=== PATIENT | female | born 1985 | race Caucasian/White ===

== ENCOUNTER 2023-07-29 11:39 | Emergency (ER) | payer BC ==
[~2023-07-29] VITALS: Ht 160 cm; Wt 67.1 kg
[2023-07-29 11:58] VITALS: BP_SYST 128; PULSE 63; RESP 16; TEMP 97.9; O2SAT 99
[2023-07-29] MEDS: ONDANSETRON HCL 4 MG/2 ML VIAL IVP ONE (12:35)
[2023-07-29] MEDS: NACL 0.9% 1,000 ML IV ONE ×2 (12:35→13:21)
[2023-07-29 13:08] LABS: BASOPHILS % (AUTO) 0.2 % (0.0-2.0); EOSINOPHILS % (AUTO) 0.1 % (0.0-4.0); HEMATOCRIT 37.7 % (36-48); HEMOGLOBIN 12.6 g/dL (12.0-16.0); LYMPHOCYTES # (AUTO) 1.5 K/uL (1.0-5.5); LYMPHOCYTES % (AUTO) 21.5 % (20.5-51.5); MEAN CORPUSCULAR HEMOGLOBIN 27 pg (27-31); MEAN CORPUSCULAR HGB CONC 34 % (32-36); MEAN CORPUSCULAR VOLUME 81 fL (79.0-98.0); MONOCYTES # (AUTO) 0.6 K/uL (0.0-1.0); MONOCYTES % (AUTO) 8.3 % (1.7-9.3); NEUTROPHILS # (AUTO) 4.9 K/uL (1.8-7.7); NEUTROPHILS % (AUTO) 69.9 % (40.0-70.0); PLATELET COUNT (AUTO) 319 K/uL (130-430); RED BLOOD CELL COUNT(AUTO) 4.64 MIL/uL (4.2-6.2); RED CELL DISTRIBUTION WIDTH 16.3 % (9.0-15.0); WHITE BLOOD COUNT (AUTO) 7.1 K/uL (4.8-10.8)
[2023-07-29 13:33] LABS: CALCIUM 9.7 mg/dL (8.4-11.0); CREATININE 0.7 mg/dL (0.55-1.30); POTASSIUM 3.9 mmol/L (3.5-5.1)
[2023-07-29 13:37] LABS: ALBUMIN 3.7 g/dL (3.4-4.8); BILIRUBIN,DIRECT 0.3 mg/dL (0.0-0.3); TOTAL BILIRUBIN 1.5 mg/dL (0.0-1.0); TOTAL PROTEIN, SERUM 8.3 g/dL (6.4-8.3)
[2023-07-29 15:01] VITALS: BP_SYST 128; PULSE 63; RESP 16; TEMP 97.9; O2SAT 99
== END 2023-07-29 14:30 | disposition home or self-care (01) ==
LOC: SED 11:39
DX: O21.0 Mild hyperemesis gravidarum (principal); Z3A.01 Less than 8 weeks gestation of pregnancy; Z79.899 Other long term (current) drug therapy
CPT/HCPCS: 99283; 96374; 96361; 80076; 80048; 85025; 86901; 36415; J2405; J7030

== ENCOUNTER 2023-08-10 09:46 | Inpatient (IN) | payer BC ==
[~2023-08-10] VITALS: Ht 160 cm; Wt 64.9 kg
[2023-08-10 09:50] VITALS: BP_SYST 138; PULSE 75; RESP 18; TEMP 97.7; O2SAT 97
[2023-08-10 11:01] LABS: BASOPHILS % (AUTO) 0.2 % (0.0-2.0); EOSINOPHILS % (AUTO) 0.2 % (0.0-4.0); HEMATOCRIT 35.2 % (36-48); HEMOGLOBIN 11.8 g/dL (12.0-16.0); LYMPHOCYTES # (AUTO) 1.2 K/uL (1.0-5.5); LYMPHOCYTES % (AUTO) 21.2 % (20.5-51.5); MEAN CORPUSCULAR HEMOGLOBIN 27 pg (27-31); MEAN CORPUSCULAR HGB CONC 33 % (32-36); MEAN CORPUSCULAR VOLUME 82 fL (79.0-98.0); MONOCYTES # (AUTO) 0.6 K/uL (0.0-1.0); MONOCYTES % (AUTO) 10.1 % (1.7-9.3); NEUTROPHILS % (AUTO) 68.3 % (40.0-70.0); PLATELET COUNT (AUTO) 279 K/uL (130-430); RED CELL DISTRIBUTION WIDTH 16.8 % (9.0-15.0); WHITE BLOOD COUNT (AUTO) 5.8 K/uL (4.8-10.8)
[2023-08-10] MEDS: NACL 0.9% 1,000 ML IV ONE (11:02)
[2023-08-10] MEDS: ONDANSETRON HCL 4 MG/2 ML VIAL IVP ONE (11:04)
[2023-08-10 11:05] LABS: CALCIUM 9.6 mg/dL (8.4-11.0); CREATININE 0.75 mg/dL (0.55-1.30); POTASSIUM 4.4 mmol/L (3.5-5.1)
[2023-08-10 11:32] LABS: ALBUMIN 3.1 g/dL (3.4-4.8); BILIRUBIN,DIRECT 0.2 mg/dL (0.0-0.3); TOTAL BILIRUBIN 1.2 mg/dL (0.0-1.0); TOTAL PROTEIN, SERUM 7.2 g/dL (6.4-8.3)
[2023-08-10 12:03] LABS: BILIRUBIN,URINE 1+ (NEGATIVE); BLOOD, URINE 2+ (NEGATIVE); COLOR,URINE YELLOW (YELLOW); GLUCOSE,URINE NEGATIVE (NEGATIVE); KETONES,URINE 3+ (NEGATIVE); LEUKOCYTE ESTERASE ,URINE 2+ (NEGATIVE); NITRITE, URINE NEGATIVE (NEGATIVE); PROTEIN URINE TRACE (NEGATIVE)
[2023-08-10 12:08] LABS: CLARITY/URINE SLIGHTLY HAZY (CLEAR)
[2023-08-10 12:27] LABS: BACTERIA,URINE FEW /HPF (None Seen); MUCUS,URINE 1+ /LPF (None Seen)
[2023-08-10] MEDS: cefTRIAXone 1 GM IVPB PREMIX 50 ML IV ONE (12:51)
[2023-08-10] MEDS: ONDANSETRON HCL 4 MG/2 ML VIAL IVP PRN (16:09)
[2023-08-10] MEDS: D5LR 1,000 ML IV SCH (16:09)
[2023-08-10 16:25] VITALS: BP_SYST 102; PULSE 72; RESP 18; TEMP 98.4; O2SAT 98
[2023-08-10 20:00] VITALS: BP_SYST 112; PULSE 71; RESP 18; TEMP 97.7; O2SAT 100
[2023-08-10] MEDS: METOCLOPRAMIDE HCL 10 MG/2 ML VIAL IVP PRN (21:55)
[2023-08-11 00:14] VITALS: BP_SYST 92; PULSE 74; RESP 16; TEMP 98.9; O2SAT 96
[2023-08-11 08:00] VITALS: O2SAT 97
[2023-08-11 08:14] VITALS: BP_SYST 101; PULSE 70; RESP 16; TEMP 97.3; O2SAT 97
[2023-08-11 11:54] VITALS: BP_SYST 95; PULSE 74; RESP 16; TEMP 97.5; O2SAT 97
[2023-08-11 12:01] VITALS: BP_SYST 95; PULSE 74; RESP 16; TEMP 97.5; O2SAT 96
== END 2023-08-11 14:45 | disposition home or self-care (01) | DRG 833 ==
LOC: SED 09:46 → SMU 11:28
PROVIDERS: ADMIT Obstetrics & Gynecology; ATTEND Obstetrics & Gynecology
DX: O21.0 Mild hyperemesis gravidarum (principal); Z3A.09 9 weeks gestation of pregnancy
CPT/HCPCS: 36415; 76816; 80048; 80076; 81000; 81001; 81015; 84702; 85025; 86901; 87086; 96361; 96365; 96375; 99285; J0696; J2405; J2765

== ENCOUNTER 2023-08-17 11:14 | Inpatient (IN) | payer BC ==
[~2023-08-17] VITALS: Ht 160 cm; Wt 61.7 kg
[2023-08-17 11:20] VITALS: BP_SYST 138; PULSE 85; RESP 18; TEMP 97.8; O2SAT 98
[2023-08-17 11:43] LABS: BASOPHILS % (AUTO) 0.2 % (0.0-2.0); EOSINOPHILS % (AUTO) 0.1 % (0.0-4.0); HEMATOCRIT 37.4 % (36-48); HEMOGLOBIN 12.6 g/dL (12.0-16.0); LYMPHOCYTES # (AUTO) 1.3 K/uL (1.0-5.5); LYMPHOCYTES % (AUTO) 17.6 % (20.5-51.5); MEAN CORPUSCULAR HEMOGLOBIN 28 pg (27-31); MEAN CORPUSCULAR HGB CONC 34 % (32-36); MEAN CORPUSCULAR VOLUME 83 fL (79.0-98.0); MONOCYTES # (AUTO) 0.5 K/uL (0.0-1.0); MONOCYTES % (AUTO) 6.8 % (1.7-9.3); NEUTROPHILS # (AUTO) 5.7 K/uL (1.8-7.7); NEUTROPHILS % (AUTO) 75.3 % (40.0-70.0); PLATELET COUNT (AUTO) 295 K/uL (130-430); RED BLOOD CELL COUNT(AUTO) 4.53 MIL/uL (4.2-6.2); RED CELL DISTRIBUTION WIDTH 17.3 % (9.0-15.0); WHITE BLOOD COUNT (AUTO) 7.6 K/uL (4.8-10.8)
[2023-08-17] MEDS: NACL 0.9% 1,000 ML IV ONE ×2 (11:56)
[2023-08-17] MEDS: METOCLOPRAMIDE HCL 10 MG/2 ML VIAL IVP ONE (11:57)
[2023-08-17 12:00] LABS: CALCIUM 9.4 mg/dL (8.4-11.0); CREATININE 0.74 mg/dL (0.55-1.30); POTASSIUM 3.8 mmol/L (3.5-5.1)
[2023-08-17 12:24] LABS: BILIRUBIN,URINE 1+ (NEGATIVE); BLOOD, URINE 3+ (NEGATIVE); CLARITY/URINE CLEAR (CLEAR); COLOR,URINE YELLOW (YELLOW); GLUCOSE,URINE NEGATIVE (NEGATIVE); KETONES,URINE 3+ (NEGATIVE); LEUKOCYTE ESTERASE ,URINE TRACE (NEGATIVE); NITRITE, URINE NEGATIVE (NEGATIVE); PROTEIN URINE 1+ (NEGATIVE); UROBILINOGEN,URINE 0.2 (0.2-1.0)
[2023-08-17 12:27] LABS: ALBUMIN 3.5 g/dL (3.4-4.8); BILIRUBIN,DIRECT 0.2 mg/dL (0.0-0.3); TOTAL BILIRUBIN 1.5 mg/dL (0.0-1.0)
[2023-08-17 13:11] LABS: BACTERIA,URINE FEW /HPF (None Seen); MUCUS,URINE 3+ /LPF (None Seen)
[2023-08-17] MEDS ORDERED: ONDANSETRON HCL 4 MG/2 ML VIAL IVP PRN (14:30)
[2023-08-17] MEDS ORDERED: NACL 0.9% 1,000 ML IV SCH (14:30)
[2023-08-17] MEDS: LR 1,000 ML IV ONE (15:56)
[2023-08-17 16:43] VITALS: BP_SYST 120; PULSE 65; RESP 16; TEMP 98.6
[2023-08-17 17:00] VITALS: O2SAT 98
[2023-08-17] MEDS: cefTRIAXone 1 GM IVPB PREMIX 50 ML IV ONE (17:39)
[2023-08-17] MEDS: DIPHENHYDRAMINE HCL 50 MG CAPSULE PO SCH (18:00)
[2023-08-17] MEDS: ONDANSETRON HCL 4 MG/2 ML VIAL IVP SCH (19:00)
[2023-08-17] MEDS: METOCLOPRAMIDE HCL 10 MG/2 ML VIAL IVP SCH (21:00)
[2023-08-17 21:55] VITALS: BP_SYST 106; PULSE 77; RESP 18; TEMP 98.2; O2SAT 98
[2023-08-18] VITALS: BP_SYST 97; PULSE 71; RESP 16; TEMP 97.9; O2SAT 97
[2023-08-18 04:35] VITALS: BP_SYST 102; PULSE 66; RESP 18; O2SAT 98
[2023-08-18 07:39] VITALS: BP_SYST 117; PULSE 70; RESP 16; TEMP 99.5; O2SAT 96
[2023-08-18 08:27] LABS: ALBUMIN 2.5 g/dL (3.4-4.8); CALCIUM 8.4 mg/dL (8.4-11.0); CREATININE 0.61 mg/dL (0.55-1.30); POTASSIUM 3.6 mmol/L (3.5-5.1); TOTAL BILIRUBIN 1.4 mg/dL (0.0-1.0)
[2023-08-18 08:46] LABS: WHITE BLOOD COUNT (AUTO) 4.8 K/uL (4.8-10.8)
[2023-08-18 09:02] LABS: BASOPHILS % (AUTO) 0.1 % (0.0-2.0); EOSINOPHILS % (AUTO) 0.4 % (0.0-4.0); HEMATOCRIT 32.5 % (36-48); LYMPHOCYTES # (AUTO) 1.2 K/uL (1.0-5.5); LYMPHOCYTES % (AUTO) 24.7 % (20.5-51.5); MEAN CORPUSCULAR HEMOGLOBIN 29 pg (27-31); MEAN CORPUSCULAR HGB CONC 35 % (32-36); MEAN CORPUSCULAR VOLUME 82 fL (79.0-98.0); MONOCYTES % (AUTO) 6.9 % (1.7-9.3); NEUTROPHILS # (AUTO) 3.3 K/uL (1.8-7.7); NEUTROPHILS % (AUTO) 67.9 % (40.0-70.0); PLATELET COUNT (AUTO) 244 K/uL (130-430); RED BLOOD CELL COUNT(AUTO) 3.85 MIL/uL (4.2-6.2); RED CELL DISTRIBUTION WIDTH 17.2 % (9.0-15.0)
[2023-08-18 09:03] LABS: MONOCYTES # (AUTO) 0.3 K/uL (0.0-1.0)
[2023-08-18] MEDS: NACL 0.9% 1,000 ML IV SCH (11:30)
[2023-08-18 11:46] VITALS: BP_SYST 116; PULSE 77; RESP 17; TEMP 97.9; O2SAT 99
[2023-08-18] MEDS ORDERED: CEPH250C PO (15:19)
[2023-08-18] MEDS ORDERED: ONDA-8 TL (15:19)
[2023-08-18] MEDS ORDERED: METO-290 PO (15:19)
[2023-08-18] MEDS: cefTRIAXone 1 GM in D5W 50 ML IV SCH (15:49)
[2023-08-18 16:53] VITALS: BP_SYST 96; PULSE 74; RESP 16; TEMP 98.4; O2SAT 96
[2023-08-18 17:03] VITALS: BP_SYST 96; PULSE 74; TEMP 98.4; O2SAT 96
== END 2023-08-18 19:23 | disposition home or self-care (01) | DRG 832 ==
LOC: SED 11:14 → SMU 14:19
PROVIDERS: ADMIT Student in an Organized Health Care Education/Training Program; ATTEND Student in an Organized Health Care Education/Training Program
DX: O21.1 Hyperemesis gravidarum with metabolic disturbance (principal); N39.0 Urinary tract infection, site not specified; O23.41 Unspecified infection of urinary tract in pregnancy, first trimester; Z3A.01 Less than 8 weeks gestation of pregnancy
CPT/HCPCS: 36415; 80048; 80053; 80076; 81000; 81001; 81015; 83690; 84702; 85025; 87040; 87086; 99285; J0696; J2405; J2765; J7060; Q0163